=== PATIENT | male | born 1945 | race African-American/Black ===

== ENCOUNTER 2018-04-11 13:46 | Emergency (ER) | payer OTHER ==
[2018-04-11] MEDS ORDERED: IBUPROFEN 800 MG TAB PO ONE (15:02)
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
[2018-04-11 16:52] VITALS: BP 115/71
== END 2018-04-11 16:52 | disposition home or self-care (01) ==
LOC: EDUNIT#
DX: S16.1XXA Strain of muscle, fascia and tendon at neck level, initial encounter (principal); F17.200 Nicotine dependence, unspecified, uncomplicated; V49.49XA Driver injured in collision with other motor vehicles in traffic accident, initial encounter; Y92.410 Unspecified street and highway as the place of occurrence of the external cause; Y99.8 Other external cause status; Y93.89 Activity, other specified

== ENCOUNTER → 2018-05-02 | Outpatient (CLI) | payer OTHER | LOC: FIMAGING 13:51 | PROVIDERS: ATTEND Physical Medicine & Rehabilitation | DX: M46.97 Unspecified inflammatory spondylopathy, lumbosacral region (principal); M46.92 Unspecified inflammatory spondylopathy, cervical region; M25.561 Pain in right knee; M25.551 Pain in right hip ==

== ENCOUNTER 2019-01-19 08:50 | Emergency (ER) | payer OTHER | END 2019-01-19 10:30 | disposition home or self-care (01) ==